=== PATIENT | female | born 1960 | race Caucasian/White ===

== ENCOUNTER 2021-06-28 14:35 | Emergency (ER) | payer OTHER ==
[~2021-06-28] VITALS: Ht 162.6 cm; Wt 52.0 kg
--- NOTE | 2021-06-28 15:34 | RAD ---
Exam Date: 06/28/2021 3:17 PM XR ELBOW COMPLETE_LEFT 3+VIEWS Indication: Reason: pain after having it smashed between a freezer and shelf / Spl. Instructions: / History: . FINDINGS/ IMPRESSION: No acute fracture or dislocation. Alignment and joint spaces are maintained. The soft tissues are w ithin normal limits. Electronically signed by: Zane Louie MD (06/28/2021 3:32 PM) [id number]
--- NOTE | 2021-06-28 15:50 | PHYS DOC ---
Past Medical History Past Surgical History: Other Additional Past Surgical Histo: L WRIST FX, PARATHYROID, BREAST AUG. General Adult EDM: Chief Complaint: ELBOW PROBLEM HPI: HPI: Patient is a 61 year old female who presents with 3 days ago was at work and got her left elbow stuck between the freezer and a shelf. Patient is here today because she has tenderness to the medial elbow and when she went to lift a basket of fries out of [employer] she had a sharp shooting pain that went from the elbow up into her humerus area. She denies focal weakness, swelling, numbness or tingling. Patient states that she does not take any kind of pain medication and does not want any pain medication. She rates her discomfort at a 4 out of 10. Review of Systems: Review of Systems: Constitutional: Denies fever or chills. [] Eyes: Denies change in visual acuity. [] HENT: Denies nasal congestion or sore throat. [] Respiratory: Denies cough or shortness of breath. [] Cardiovascular: Denies chest pain or edema. [] GI: Denies abdominal pain, nausea, vomiting, bloody stools or diarrhea. [] : Denies dysuria. [] Musculoskeletal: Denies back pain or + left elbow joint pain. [] Integument: Denies rash. [] Neurologic: Denies headache, focal weakness or sensory changes. [] Endocrine: Denies polyuria or polydipsia. [] Lymphatic: Denies swollen glands. [] Psychiatric: Denies depression or anxiety. [] Heart Score: C/O Chest Pain: No Allergies: Allergies: Allergies Coded Allergies Type Severity Reaction Last Updated Verified No Known Drug Allergies 06/28/21 No Physical Exam: PE: Constitutional: Well developed, well nourished, no acute distress, non-toxic appearance. [] HENT: Normocephalic, atraumatic, bilateral external ears normal, oropharynx moist, no oral exudates, nose normal. [] Eyes: PERRLA, EOMI, conjunctiva normal, no discharge. [] Neck: Normal range of motion, no tenderness, supple, no stridor. [] Cardiovascular:Heart rate regular rhythm, no murmur [] Lungs & Thorax: Bilateral breath sounds clear to auscultation [] Abdomen: Bowel sounds normal, soft, no tenderness, no masses, no pulsatile masses. [] Skin: Warm, dry, no erythema, no rash. [] Back: No tenderness, no CVA tenderness. [] Extremities: No tenderness, no cyanosis, no clubbing, ROM intact, no edema. [] Neurologic: Alert and oriented X 3, normal motor function, normal sensory function, no focal deficits noted. [] Psychologic: Affect normal, judgement normal, mood normal. [] Current Patient Data: Vital Signs: Vital Signs Date Time Temp Pulse Resp B/P (MAP) Pulse Ox O2 Delivery O2 Flow Rate FiO2 06/28/21 14:52 98.4 75 16 166/80 (108) 99 Room Air 98.4 EKG: EKG: [] Radiology/Procedures: Radiology/Procedures: [] Impression: [facility] [address] [place], [place] [id number] IMAGING REPORT Signed PATIENT: VALARIE EVERETTOUNT: [id number] : 1960 LOCATION: ER AGE: 61 SEX: F EXAM STATUS: REG ER ORD. PHYSICIAN: ADELINE THOMAS APRN REASON: pain after having it smashed between a freezer and shelf PROCEDURE: ELBOW LEFT 3V Exam Date: 06/28/2021 3:17 PM XR ELBOW COMPLETE_LEFT 3+VIEWS Indication: Reason: pain after having it smashed between a freezer and shelf / Spl. Instructions: / History: . FINDINGS/ IMPRESSION: No acute fracture or dislocation. Alignment and joint spaces are maintained. The soft tissues are within normal limits. Electronically signed by: Anita Louie MD (06/28/2021 3:32 PM) [id number] DICTATED and SIGNED BY: ANITA LOUIE MD DATE: 06/28/21 [id number] 0 Course & Med Decision Making: Course & Med Decision Making Pertinent Labs and Imaging studies reviewed. (See chart for details) See HPI. Alert and oriented x4. Ambulatory steady gait. Speaks in full clear sentences. No joint swelling, bruising, abrasion, laceration. There is tenderness to the left medial elbow. She has full range of motion of the joint. No joint laxity. Radial pulse present. Cap refill less than 2 seconds. [] Dragon Disclaimer: Dragon Disclaimer: This electronic medical record was generated, in whole or in part, using a voice recognition dictation system. Departure Departure Impression: Primary Impression: Contusion of elbow, left Qualified Codes: S50.02XA - Contusion of left elbow, initial encounter Disposition: HOME / SELF CARE / HOMELESS Condition: STABLE Referrals: OSWALD KEBEDE DO (PCP) Patient Instructions: Elbow Contusion Additional Instructions: I would follow-up with your work comp doctor. Take ibuprofen or Tylenol for y our pain. Also use ice or heat. ADELINE THOMAS PASSENGER SCREENER Jun 28, 2021 15:50
[2021-06-28 15:55] VITALS: BP 152/80
== END 2021-06-28 15:55 | disposition home or self-care (01) ==
LOC: ER 14:35
DX: S50.02XA Contusion of left elbow, initial encounter (principal); W23.0XXA Caught, crushed, jammed, or pinched between moving objects, initial encounter; Y93.89 Activity, other specified; Y92.89 Other specified places as the place of occurrence of the external cause; Y99.8 Other external cause status
CPT/HCPCS: 73080; 99283